=== PATIENT | female | born 1960 | race Caucasian/White ===

== ENCOUNTER 2017-01-18 22:15 | Emergency (ER) | payer BC, OTHER ==
[~2017-01-18] VITALS: Ht 157.5 cm; Wt 66.0 kg
[2017-01-18 22:26] VITALS: Ht 157.5 cm; Wt 66.0 kg
[2017-01-18] MEDS ORDERED: FAMO-18 PO (22:57)
[2017-01-18] MEDS ORDERED: BEN25 PO (22:57)
[2017-01-18] MEDS ORDERED: PRED20TA PO (22:58)
[2017-01-18] MEDS ORDERED: predniSONE 20 MG TAB PO ONE (23:00)
[2017-01-18] MEDS ORDERED: FAMOTIDINE 20 MG TAB PO ONE (23:00)
--- NOTE | 2017-01-18 23:17 | ERD ---
ER Documentation Chief Complaint Date/Time DATE: 01/18/17 TIME: 23:15 Chief Complaint redness/rash on right arm started today; took 2 benadryl today HPI 56-year-old female comes in with a generalized progressive started this afternoon several hours ago. She states that it is on her arms and trunk, and improved with Benadryl very came back. She does not recall any new foods, medications or allergens that she can recall. She has no trouble swallowing, voice changes or drooling. She has no known allergies. ROS All systems reviewed and are negative except as per history of present illness. Medications Home Meds Active Scripts Prednisone* (Prednisone*) 20 Mg Tab, 40 MG PO DAILY for 4 Days, TAB Prov:KENDAL JADE PA-C 01/18/17 Famotidine* (Pepcid*) 20 Mg Tablet, 20 MG PO BID for 4 Days, TAB Prov:KENDAL JADE PA-C 01/18/17 Diphenhydramine Hcl* (Benadryl*) 25 Mg Cap, 1-2 TSP PO Q6, #30 CAP Prov:KENDAL JADE PA-C 01/18/17 Allergies Allergies: Coded Allergies: No Known Allergy (Unverified , 01/18/17) PMhx/Soc Medical and Surgical Hx: pt denies Medical Hx Hx Alcohol Use: No Hx Substance Use: No Hx Tobacco Use: No Physical Exam Vitals Vital Signs Date Time Temp Pulse Resp B/P Pulse Ox O2 Delivery O2 Flow Rate FiO2 01/18/17 22:26 97.9 81 20 137/67 99 Physical Exam General: Well-developed, well-nourished. The patient appears in no acute distress. HEENT: Head is normocephalic, atraumatic. No scleral icterus. Neck: Supple. Nontender. Lungs: Clear to auscultation. Normal air movement. Heart: Regular rate and rhythm. S1 and S2 are normal. No murmurs, gallops, or rubs. Abdomen: Nondistended. Extremities: No clubbing or cyanosis. Moving extremities x 4. No weakness. Neurologic: Alert and oriented 3. No focal deficits. Normal speech and gait. Skin: Scattered urticaria that is blanchable on the arms and trunk Results 24 hrs Current Medications Medications (Trade) Dose Ordered Sig/Jaleesa Route PRN Reason Start Time Stop Time Status Last Admin Dose Admin Prednisone (Prednisone) 40 mg ONCE ONCE PO 01/18/17 23:00 01/18/17 23:01 DC Famotidine (Pepcid) 20 mg ONCE ONCE PO 01/18/17 23:00 01/18/17 23:01 DC Procedures/MDM Patient's allergic symptoms have stabilized while they have been evaluated in the department without evidence of persistent systemic reaction. Patient is healthy and capable of treating and responding to rebound reactions. Patient appropriate for outpatient allergy work up and treatment. Departure Diagnosis: Primary Impression: Allergic reaction Condition: Good Patient Instructions: Allergic Reaction, Other (General) Additional Instructions: Call your primary care doctor TOMORROW for an appointment during the next 1-2 days.See the doctor sooner or return here if your condition worsens before your appointment time. KENDAL JADE PA-C Jan 18, 2017 23:17
[2017-01-18 23:46] VITALS: BP 130/64; PULSE 76; RESP 20; TEMP 98.1
== END 2017-01-18 23:47 | disposition home or self-care (01) ==
LOC: FTE 22:15
DX: R21 Rash and other nonspecific skin eruption (principal)
CPT/HCPCS: 99283; J7512